=== PATIENT | male | born 2000 | race Caucasian/White ===

== ENCOUNTER 2018-07-11 19:01 | Emergency (ER) | payer MEDICAID ==
[~2018-07-11] VITALS: Ht 170.2 cm; Wt 76.0 kg
[2018-07-11 19:11] VITALS: BP 135/77; PULSE 99; RESP 18; Ht 170.2 cm; Wt 76.0 kg
[2018-07-11] MEDS ORDERED: BEN50 PO (20:16)
[2018-07-11] MEDS ORDERED: HYDR28OI2 TP (20:16)
[2018-07-11] MEDS ORDERED: IVER3TAB2 PO (20:16)
--- NOTE | 2018-07-12 07:00 | ERD ---
ER Documentation Chief Complaint Chief Complaint PROLONGATION OF RASH VS ALLERGIC RXN X 4 DAYS, LEFT ARM/BACK HPI 17-year-old male presents for rash times 4 days. He states that he has the rash diffusely over both arms and wrists and lower extremity. Patient states that the rash associated with tenderness was worse at night. Denies any fevers. No prior similar symptoms. He states that there is some crusting over some of the rash sites. He states that the itching is intense ROS All systems reviewed and are negative except as per history of present illness. Medications Home Meds Active Scripts Hydrocortisone Acetate (Hydrocortisone) 28 Gm Oint...g., 28 GM TP BID PRN for ITCHING for 7 Days, #1 TUBE Prov:MALISSA HOLLIS DO 07/11/18 Diphenhydramine Hcl* (Benadryl*) 50 Mg Cap, 50 MG PO Q6 PRN for ITCHING, #30 CAP Prov:MALISSA HOLLIS DO 07/11/18 Ivermectin* (Stromectol*) 3 Mg Tab, 15 MG PO ONCE PRN for scabies, #10 TAB take 15mg (5 tabs) once and 15mg (5 tabs) in 7-14 days. Prov:MALISSA HOLLIS DO 07/11/18 Allergies Allergies: Coded Allergies: No Known Allergy (Unverified , 07/11/18) PMhx/Soc Medical and Surgical Hx: pt denies Surgical Hx Hx Cardiac Disorders: Yes (heart mummur) Hx Alcohol Use: No Hx Substance Use: No Hx Tobacco Use: No Smoking Status: Never smoker Physical Exam Vitals ital Signs Date Temp Pulse Resp B/P (MAP) Pulse Ox O2 O2 Flow FiO2 Time Delivery Rate 07/11/18 97.7 99 18 135/77 98 19:11 (96) Physical Exam Const: No acute distress Resp: Clear to auscultation bilaterally Cardio: Regular rate and rhythm, no murmurs Abd: Soft, non tender, non distended. Normal bowel sounds Skin: Crusting erythematous rash noted over the bilateral upper arms risks and lateral lower extremities Back: No midline or flank tenderness Ext: No cyanosis, or edema Neur: Awake and alert Psych: Normal Mood and Affect Procedures/MDM Medical Decision Making: Differential diagnosis includes but not limited to scabies, contact dermatitis, cellulitis Patient appeared well on physical exam. Examination this is consistent with scabies. Patient given supportive medications and ivermectin per patient preference. Advised that in order to control the scabies infection. Patient advised to follow up with PCP in 1-2 days. Patient advised to return to ED for new or worsening symptoms. Patient stable on discharge from the ED. Disclaimer: Inadvertent spelling and grammatical errors are likely due to EHR/dictation software use and do not reflect on the overall quality of patient care. Also, please note that the electronic time recorded on this note does not necessarily reflect the actual time of the patient encounter. Departure Diagnosis: Primary Impression: Scabies Condition: Fair Patient Instructions: Scabies Referrals: [facility] YOU HAVE RECEIVED A MEDICAL SCREENING EXAM AND THE RESULTS INDICATE THAT YOU DO NOT HAVE A CONDITION THAT REQUIRES URGENT TREATMENT IN THE EMERGENCY DEPARTMENT. FURTHER EVALUATION AND TREATMENT OF YOUR CONDITION CAN WAIT UNTIL YOU ARE SEEN IN YOUR DOCTORS OFFICE WITHIN THE NEXT 1-2 DAYS. IT IS YOUR RESPONSIBILITY TO MAKE AN APPOINTMENT FOR FOLOW-UP CARE. IF YOU HAVE A PRIMARY DOCTOR --you should call your primary doctor and schedule an appointment IF YOU DO NOT HAVE A PRIMARY DOCTOR YOU CAN CALL OUR PHYSICIAN REFERRAL HOTLINE AT IF YOU CAN NOT AFFORD TO SEE A PHYSICIAN YOU CAN CHOSE FROM THE FOLLOWING [facility] [address] [facility]. [facility] [address] [facility] [facility] [address] [facility] [facility] [address] [facility]. [facility] [address] [facility]. [facility]. [address] Additional Instructions: Call your primary care doctor TOMORROW for an appointment during the next 1-2 days.See the doctor sooner or return here if your condition worsens before your appointment time. MALISSA HOLLIS DO Jul 12, 2018 07:00
== END 2018-07-11 20:38 | disposition home or self-care (01) ==
LOC: FTE 19:01 → EDBD 19:01 → FTE 20:38
DX: B86 Scabies (principal)
CPT/HCPCS: 99283